=== PATIENT | female | born 1975 | race Caucasian/White ===

== ENCOUNTER → 2023-08-22 12:38 | Outpatient (REF) | payer BC, SELFPAY | LOC: HWRAD 12:38 | PROVIDERS: ATTENDING PHYSICIAN Internal Medicine Gastroenterology; FAMILY PHYSICIAN Student in an Organized Health Care Education/Training Program | DX: E04.1 Nontoxic single thyroid nodule (principal); D35.1 Benign neoplasm of parathyroid gland | CPT/HCPCS: 76536; 76700; 76770; 76856 ==

== ENCOUNTER → 2023-09-01 07:44 | Outpatient (REF) | payer BC, SELFPAY | LOC: RAD 07:44 | PROVIDERS: ATTENDING PHYSICIAN Internal Medicine Gastroenterology | DX: K86.1 Other chronic pancreatitis (principal); K81.0 Acute cholecystitis; K80.80 Other cholelithiasis without obstruction | CPT/HCPCS: 78226; A9537 ==

== ENCOUNTER 2023-11-23 07:40 | Emergency (ER) | payer BC, SELFPAY ==
[2023-11-23] VITALS (7 sets, daily range): BP systolic 95–162; BP diastolic 50–101
[2023-11-23 09:01] LABS: % Basophils 0.3 % (0-2); % Immature Granulocytes 0.6 % (0-0.5); % Lymphocytes 12.1 % (20.5-51.1); % Monocytes 2.7 % (1.7-9.3); % Neutrophils 84.3 % (42.2-75.2); Absolute Immature Granulocytes 0.1 10^3/uL (0-0.05); Absolute Lymphocytes 1.6 10^3/uL (1.2-3.4); Absolute Monocytes 0.4 10^3/uL (0.1-0.6); Absolute Neutrophils 11.2 10^3/uL (1.4-6.5); Hematocrit 39.3 % (37.0-47.0); Hemoglobin 13.8 g/dL (12.0-16.0); Mean Corp Hgb Conc. 35.1 g/dL (33.0-37.0); Mean Corpuscular Hgb 30.7 pg (27.0-31.0); Mean Corpuscular Volume 87.5 fL (81.0-99.0); Mean Platelet Volume 9.8 fL (7.4-10.4); Nucleated Red Blood Cells % 0 %; Platelet Count 281 10^3/uL (130-400); Red Blood Cell Count 4.49 10^6/uL (4.20-5.40); Red Cell Dist. Width 13.7 % (11.5-14.5); White Blood Cell Count 13.3 10^3/uL (4.8-10.8)
[2023-11-23 09:09] LABS: HCG, Serum Qualitative Screen Negative
[2023-11-23 09:15] LABS: ALT (SGPT) 24 U/L (0-35); AST (SGOT) 24 U/L (14-36); Albumin 4.8 g/dl (3.5-5.0); Alkaline Phosphatase 66 U/L (38-126); Blood Urea Nitrogen 5 mg/dl (7-17); Calcium 9.5 mg/dl (8.4-10.2); Carbon Dioxide 19 mmol/L (22-30); Chloride 108 mmol/L (98-107); Glucose 164 mg/dl (70-99); Lipase 44 U/L (23-300); Potassium 3.7 mmol/L (3.5-5.1); Sodium 142 mmol/L (135-145); Total Bilirubin 0.7 mg/dl (0.2-1.3); Total Protein 7.6 g/dl (6.3-8.2); eGFR > 60.00
[2023-11-23] MEDS: ZOFRAN 4 MG IV ×2 (09:31→10:59)
[2023-11-23] MEDS: NSS 1000 IV (09:34)
--- NOTE | 2023-11-23 09:36 | ED.GENMED ---
History of Present Illness
<ANDREW Corley - Last Filed: 11/23/23 15:59>
General
Chief Complaint: Abdominal Symptoms
Source: patient
Exam Limitations: none
Time Seen by Provider: 11/23/23 08:19
Nursing documentation reviewed up to this point in time: agreed with
History of Present Illness
History of Present Illness:
Patient is a 48-year-old female who presents to the ER complaining nausea and vomiting for the past 12 hours. She was at a alliance party yesterday and was unsure if she had food that was bad because it was sitting out. She also had some alcoholic
beverages. She started vomiting last night . She complains of persistent nausea vomiting and now headache. She denies any associated neck pain visual disturbance, numbness Tingling weakness in upper extremities. Denies any recent trauma. She
denies any actual fever or chills. No one else is sick at home. She does complain of burning in her upper abdomen from vomiting.
Past History
<ANDREW Corley - Last Filed: 11/23/23 15:59>
Past History
ED Past Medical History: Hypothyroidism
ED Past Surgical History: Other (Hernia repair)
Social History
Tobacco: Non-smoker
Alcohol: None
Drug: None
Personal:
Living: with family
Employment: Employed ([employer])
Family History
Family History: Other (Contributory)
Review of Systems
<ANDREW Corley - Last Filed: 11/23/23 15:59>
Review of Systems
Allergies reviewed?: Yes
All Other Systems: ROS reviewed and negative except as documented in HPI and ROS
Constitutional: Reports no symptoms; Denies fever, fatigue or chills
EENT: Reports no symptoms
Respiratory: Reports no symptoms
Cardiac: Reports no symptoms
ABD/GI: Reports nausea and vomiting; Denies abdominal pain
: Reports no symptoms
Musculoskeletal: Reports no symptoms
Skin: Reports no symptoms
Neurological: Reports headache; Denies dizzy, weakness or numbness
Hematologic/Lymphatic: Reports no symptoms
Psychiatric: Reports no symptoms
Phy Exam
<ANDREW Corley - Last Filed: 11/23/23 15:59>
General Physical Exam
General Presentation: no apparent distress
General age: appears stated age
General Skin: warm and dry
General Habitus: normal
General Mental: alert
General Hydration: appears well hydrated
Cardiovascular Exam
Cardiovascular Exam: regular rate/rhythm, no murmur and normal peripheral pulses
Pulmonary Exam
Pulmonary Exam: lungs clear and no respiratory distress
Gastrointestinal Exam
Gastrointestinal Exam: non tender and soft
Neurological Exam
Neurological Exam: alert and oriented x3
Musculoskeletal Exam
Musculoskeletal Exam: full ROM
Skin Exam
Skin Exam: normal color and warm/dry
Psychiatric Exam
Psychiatric Exam: normal mood/affect
Course
<ANDREW Corley - Last Filed: 11/23/23 15:59>
Orders/Labs/Results
Orders:
Orders
11/23/23 08:42
Test Result ONCE
11/23/23 08:43
CMP [Comprehensive Metabolic Panel] Urgent
Complete Blood Count/With Diff Urgent
HCG, Serum Qualitative Screen Urgent
Lipase Urgent
11/23/23 09:29
Ondansetron Injectable [Zofran] 4 mg .ROUTE .STK-MED ONE
11/23/23 09:30
Ondansetron Injectable [Zofran] 4 mg IV NOW STA
11/23/23 09:33
0.9% Sodium Chloride 1000 ml [Nss] 1,000 ml IV BOLUS
11/23/23 10:45
Morphine Sulfate 4 mg IV NOW STA
11/23/23 10:52
Famotidine [Pepcid] 20 mg .ROUTE .STK-MED ONE
Famotidine [Pepcid] 20 mg IV NOW STA
Ondansetron Injectable [Zofran] 4 mg IV NOW STA
11/23/23 11:13
CT Head W/o Iv Contrast Urgent
Comment:
Reason For Exam: trauma
11/23/23 13:12
Diphenhydramine [Benadryl] 25 mg IV NOW STA
Metoclopramide [Reglan] 10 mg IV NOW STA
Abnormal Lab Results
11/23/23
08:43
WBC 13.3 H 10^3/uL
(4.8-10.8)
Abs Immat Gran (auto) 0.1 H 10^3/uL
(0-0.05)
Absolute Neuts (auto) 11.2 H 10^3/uL
(1.4-6.5)
Immature Gran % 0.6 H %
(0-0.5)
Neutrophils % 84.3 H %
(42.2-75.2)
Lymphocytes % 12.1 L %
(20.5-51.1)
Chloride 108 H mmol/L
(98-107)
Carbon Dioxide 19 L mmol/L
(22-30)
BUN 5 L mg/dl
(7-17)
Creatinine 0.5 L mg/dL
(0.6-1.0)
Glucose 164 H mg/dl
(70-99)
11/23/23 08:43
11/23/23 08:43
Vital Signs
Initial and Last Documented VS:
Initial Vital Signs
Temp Pulse BP Pulse Ox
98.0 F 93 162/101 98
11/23/23 07:48 11/23/23 07:48 11/23/23 07:48 11/23/23 07:48
Last Documented Vital Signs
Temp Pulse Resp BP Pulse Ox
98.0 F 89 18 95/55 95
11/23/23 07:48 11/23/23 13:48 11/23/23 13:48 11/23/23 15:43 11/23/23 13:48
General Machine Operator consulted with Physician
General Machine Operator consulted with physician?: Yes
Name of Physician Consulted: Dr Lang
<Kasi Lang, DO - Last Filed: 11/23/23 14:17>
Orders/Labs/Results
Orders:
Orders
11/23/23 08:42
Test Result ONCE
11/23/23 08:43
CMP [Comprehensive Metabolic Panel] Urgent
Complete Blood Count/With Diff Urgent
HCG, Serum Qualitative Screen Urgent
Lipase Urgent
11/23/23 09:29
Ondansetron Injectable [Zofran] 4 mg .ROUTE .STK-MED ONE
11/23/23 09:30
Ondansetron Injectable [Zofran] 4 mg IV NOW STA
11/23/23 09:33
0.9% Sodium Chloride 1000 ml [Nss] 1,000 ml IV BOLUS
11/23/23 10:45
Morphine Sulfate 4 mg IV NOW STA
11/23/23 10:52
Famotidine [Pepcid] 20 mg .ROUTE .STK-MED ONE
Famotidine [Pepcid] 20 mg IV NOW STA
Ondansetron Injectable [Zofran] 4 mg IV NOW STA
11/23/23 11:13
CT Head W/o Iv Contrast Urgent
Comment:
Reason For Exam: trauma
11/23/23 13:12
Diphenhydramine [Benadryl] 25 mg IV NOW STA
Metoclopramide [Reglan] 10 mg IV NOW STA
Abnormal Lab Results
11/23/23
08:43
WBC 13.3 H 10^3/uL
(4.8-10.8)
Abs Immat Gran (auto) 0.1 H 10^3/uL
(0-0.05)
Absolute Neuts (auto) 11.2 H 10^3/uL
(1.4-6.5)
Immature Gran % 0.6 H %
(0-0.5)
Neutrophils % 84.3 H %
(42.2-75.2)
Lymphocytes % 12.1 L %
(20.5-51.1)
Chloride 108 H mmol/L
(98-107)
Carbon Dioxide 19 L mmol/L
(22-30)
BUN 5 L mg/dl
(7-17)
Creatinine 0.5 L mg/dL
(0.6-1.0)
Glucose 164 H mg/dl
(70-99)
11/23/23 08:43
11/23/23 08:43
Vital Signs
Initial and Last Documented VS:
Initial Vital Signs
Temp Pulse BP Pulse Ox
98.0 F 93 162/101 98
11/23/23 07:48 11/23/23 07:48 11/23/23 07:48 11/23/23 07:48
Last Documented Vital Signs
Temp Pulse Resp BP Pulse Ox
98.0 F 89 18 95/55 95
11/23/23 07:48 11/23/23 13:48 11/23/23 13:48 11/23/23 15:43 11/23/23 13:48
<ANDREW Corley - Last Filed: 11/23/23 15:59>
MDM/Problems Addressed
MDM/Problems Addressed:
Patient is a 48-year-old female who presented with nausea vomiting since last night. She was at a [employer] party yesterday and did have some alcoholic beverages. No one else is sick at home. She denies any associated diarrhea. No recent trauma. She does
present with a headache. She denies any recent fever or chills. She presents awake alert vomiting however neurologically intact. Patient was initially given Zofran and and fluids here in the ER. Due to headache CAT scan was done and
unremarkable. Patient's headache was much better after fluids and Zofran however her nausea did persist to have it was improved. Patient was then given reglan and Benadryl additional fluids feeling much better.
Patient feels well enough to go home. Patient was eval by ED physician stable for discharge home
<ANDREW Corley - Last Filed: 11/23/23 15:59>
*Radiology
Radiology exam reviewed: radiology read reviewed
*Pulse Oximetry
Patient hypoxic: no
*Critical Care Note
Total Time (30-74mins, 75-104mins- exclusive of procedures): Not Applicable
ED Attending Note
<ANDREW Corley - Last Filed: 11/23/23 15:59>
-
Portions of this chart may have been created with voice recognition software.� Occasional wrong word or��sound alike� substitutions may have occurred due to the inherent limitations of voice recognition software.
<Kasi Lang DO - Last Filed: 11/23/23 14:17>
ED Attending Note
Patient seen and examined by attending physician: Yes
ED Attending Note:
I have reviewed and agree with history treatment plan by Tiffani Carlin. My exam revealed for 48-year-old female in no acute distress. No neurologic deficits. She feels better, headache nearly resolved. Do not suspect subarachnoid hemorrhage.
Stable for discharge
Discharge Plan
Departure
Patient Disposition: Home (Routine Discharge)
Date of Disposition: 11/23/23
Time of Disposition: 14:35
Patient with high blood pressure during this ER visit?: Yes
Condition: Fair
Covid-19: Not Applicable
Discharge Problem:
Gastroenteritis
Instructions: Clear Liquid Diet, Island Diet, Nausea and Vomiting, Adult (DC), BLOOD PRESSURE
Prescriptions:
New
ondansetron HCl 4 mg tablet
4 mg PO Q8H PRN (Reason: nausea and vomiting) Qty: 10 0RF
No Action
ibuprofen 600 MG tablet
600 mg PO Q6HPRN PRN (Reason: pain) Qty: 30 0RF
Synthroid
1 tab PO DAILY
Patient Comments:
patient unsure of dosage
hydrocodone-acetaminophen 1 TABLET tablet
1 tab PO Q4HPRN PRN (Reason: pain) Qty: 10 0RF
ibuprofen 600 MG tablet
600 mg PO Q6 PRN (Reason: pain) Qty: 20 0RF
ondansetron 4 MG tablet,disintegrating
4 mg PO TIDPRN PRN (Reason: nausea/vomiting) Qty: 12 0RF
Referrals:
UNKNOWN - PT DOES,NOT KNOW [Family Provider] -
Activity Restrictions/Additional Instructions:
As discussed Zofran as needed for nausea. This medication was sent to her pharmacy.
clear fluids for the first 24 hours followed by bland solid foods. Stay well-hydrated. Follow-up with family doctor in the next several days return if any worsening of symptoms.
Interventions
Interventions:
*Risk Screen - Suicide Last Done: 11/23/23 08:45
*General Assessment Last Done: 11/23/23 15:51
*Neglect/Abuse Screening Last Done: 11/23/23 08:45
ED- Fall Risk Assessment Last Done: 11/23/23 08:45
*ED COVID-19 Vaccine History Last Done: 11/23/23 08:45
*Nursing Disposition Last Done: 11/23/23 15:51
VY-Azyybe-Zwfmmdcrck Assessment Last Done: 11/23/23 08:45
Discharge Date and Time
Print Language: DIVEHI
[2023-11-23] MEDS: PEPCID 20 MG IV (10:59)
[2023-11-23] MEDS: MORPHINE SULFATE 4 MG IV (10:59)
[2023-11-23] MEDS: BENADRYL 25 MG IV (13:42)
[2023-11-23] MEDS: REGLAN 10 MG IV (13:42)
== END 2023-11-23 15:52 | disposition home or self-care (01) ==
LOC: EMR 07:40
PROVIDERS: EMERGENCY PHYSICIAN Emergency Medicine
DX: K52.9 Noninfective gastroenteritis and colitis, unspecified (principal)
CPT/HCPCS: 99284; 96374; 96375 ×4; 96361 ×2; 96376; 70450; 80053; 83690; 84703; 85025

== ENCOUNTER → 2024-04-15 18:05 | Outpatient (REF) | payer BC, SELFPAY | LOC: WDC 18:05 | PROVIDERS: ATTENDING PHYSICIAN Obstetrics & Gynecology; FAMILY PHYSICIAN Student in an Organized Health Care Education/Training Program | DX: Z12.31 Encounter for screening mammogram for malignant neoplasm of breast (principal) | CPT/HCPCS: 77063; 77067 ==

== ENCOUNTER → 2024-06-07 12:32 | Outpatient (REF) | payer BC, SELFPAY | LOC: RAD 12:32 | PROVIDERS: ATTENDING PHYSICIAN Student in an Organized Health Care Education/Training Program | DX: R59.0 Localized enlarged lymph nodes (principal); D17.9 Benign lipomatous neoplasm, unspecified | CPT/HCPCS: 74177; Q9967 ==

== ENCOUNTER → 2025-03-07 13:37 | Outpatient (REF) | payer BC, SELFPAY | LOC: PAVMRI 13:37 | PROVIDERS: ATTENDING PHYSICIAN Student in an Organized Health Care Education/Training Program; FAMILY PHYSICIAN Student in an Organized Health Care Education/Training Program | DX: R10.11 Right upper quadrant pain (principal); Z90.49 Acquired absence of other specified parts of digestive tract; R93.3 Abnormal findings on diagnostic imaging of other parts of digestive tract | CPT/HCPCS: 74183; A9575 ==

== ENCOUNTER → 2025-04-30 10:27 | Outpatient (REF) | payer BC, SELFPAY | LOC: WDC 10:27 | PROVIDERS: ATTENDING PHYSICIAN Advanced Practice Midwife; FAMILY PHYSICIAN Obstetrics & Gynecology | DX: Z12.31 Encounter for screening mammogram for malignant neoplasm of breast (principal) | CPT/HCPCS: 77063; 77067 ==